=== PATIENT | female | born 1950 | race Caucasian/White ===

== ENCOUNTER → 2017-06-19 | Outpatient (CLI) | payer MEDICARE, OTHER ==
--- NOTE | ~2017-06-19 | MR113 ---
[facility] A Service of [facility] RADIOLOGY TEXT RESULTS PATIENT: ANNETTE LUBIN LOCATION: [facility] : 48 UNIT #: [id number] AGE: [address]: Lyle Pena MD SEX: F ORDER DR: [id number] [address] [address] [id number] O MR#: [id number] Acc #: [id number] NAME: ANNETTE LUBIN. : 1950 SEX: F STUDY DATE/TIME: 06/19/2017 15:12 UNIT: [facility] ROOM: STUDY DESCRIPTION: MR Lumbar Wo Contrast Attending Physician: Lyle Pena M.D. Referring Physician: Lyle Pena M.D. Ordering Physician: Lyle Pena M.D. Primary Care Physician: Lyle Pena M.D. MRI CENTER REPORT This report is preliminary unless electronic signature is present. EXAM MRI of the lumbar spine without contrast, dated 06/19/2017. COMPARISON Plain films lumbar spine dated 02/11/2016. HISTORY Chronic low back pain for many years which radiates down into the left leg and left buttock region. FINDINGS Multisequence, multiplanar imaging of the lumbar spine was obtained without contrast. Vertebral body heights and alignment are preserved. Degenerative disc signal loss is at multiple levels. Conus terminates at L1-2. Signal of conus and cauda equina are within normal limits. Increased T2-signal lesions are noted in bilateral kidneys, incompletely characterized. L1-2: Unremarkable. L2-3: Mild disc bulge with superimposed left foraminal to extraforaminal small broad-based protrusion with mild inferior left neural foraminal encroachment. No canal stenosis. L3-4: Concentric disc bulge which is asymmetrically prominent in bilateral foraminal to extraforaminal regions particularly in the left suspicious for superimposed broad-based protrusion. Mild inferior bilateral neural foraminal narrowing is seen particularly in the left. Borderline size to mild canal stenosis. Less than 5 mm tiny increased T2-signal lesions is noted within the right ligamentum flavum causing mild mass effect on the adjacent thecal sac. There is mild canal stenosis. L4-5: Concentric disc bulge with tiny central protrusion with annular STS. [facility] A Service of [facility] RADIOLOGY TEXT RESULTS PATIENT: ANNETTE LUBIN LOCATION: [facility] : 48 UNIT #: [id number] AGE: [address]: Lyle Pena MD SEX: F ORDER DR: bryanna. Mild inferior bilateral neural foraminal narrowing is seen. Mild right facet hypertrophic change. L5-S1: Disc osteophyte complex with mild left facet hypertrophic change. No canal stenosis or neural foraminal narrowing. Increased T2-signal lesions are noted in the canal associated with the sacral nerves, two in the right, and one in the left, and also in the left T12-L1 neural foramen. These are incompletely characterized on the current study. 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 Nerve sheath tumors cannot be excluded without contrast enhancement. IMPRESSION 1. Degenerative changes are noted at multiple levels as described above, relatively worse at L4-5 followed by L3-4. 2. Increased T2 signal bilateral renal lesions are noted, incompletely characterized. Correlate with prior abdominal imaging or consider renal ultrasound. There are no priors available in the current facility. 3. Increased T2-signal lesions are noted in the canal associated with the sacral nerves, two in the right, and one in the left, and also in the left T12-L1 neural foramen. These are incompletely characterized on the current study. 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 Nerve sheath tumors cannot be excluded without contrast enhancement. Dictated by... Alfredo Larson M.D. THIS IS AN ELECTRONICALLY VERIFIED REPORT Alfredo Larson M.D. at 06/21/2017 6:37 PM CPR/lesley TD: 06/20/2017 22:40 JOB #: [id number] MRI CENTER REPORT Page 1 of 1
== END | disposition home or self-care (01) ==
LOC: SMRI 14:37
DX: M54.9 Dorsalgia, unspecified (principal); M47.896 Other spondylosis, lumbar region; N28.89 Other specified disorders of kidney and ureter; R93.8 Abnormal findings on diagnostic imaging of other specified body structures; G62.9 Polyneuropathy, unspecified
CPT/HCPCS: 72148

== ENCOUNTER → 2017-06-28 | Outpatient (CLI) | payer MEDICARE, OTHER ==
--- NOTE | ~2017-06-28 | US77 ---
[facility] A Service of [facility] RADIOLOGY TEXT RESULTS PATIENT: ANNETTE LUBIN LOCATION: [facility] : 48 UNIT #: [id number] AGE: [address]: Lyle Pena MD SEX: F ORDER DR: [id number] [place] [address] [id number] O MR#: [id number] Acc #: [id number] NAME: ANNETTE LUBIN : 1950 SEX: F STUDY DATE/TIME: 06/28/2017 13:50 UNIT: [facility] ROOM: STUDY DESCRIPTION: US Kidney Bilateral Complete Attending Physician: Lyle Pena M.D. Referring Physician: Lyle Pena M.D. Ordering Physician: Lyle Pena M.D. Primary Care Physician: Lyle Pena M.D. MEDICAL IMAGING REPORT This report is preliminary unless electronic signature is present. EXAM Renal ultrasound INDICATIONS T2 hyperintense lesions in both kidneys on recent lumbar spine MRI. Further characterization. PROCEDURE Graves-scale and Doppler imaging of the kidneys and bladder. COMPARISON Lumbar spine MRI 06/19/2017 FINDINGS Technically difficult study. Kidneys were difficult to see. The right kidney measures 10.8 cm. Left kidney measures 10.5 cm. No hydronephrosis. No focal right renal lesion is seen on this study. Unremarkable bladder. IMPRESSION Technically difficult study. No discrete renal mass is seen on this study. The abnormalities seen in the kidneys on recent lumbar spine MRI are not seen on this study. These could be further characterized with renal protocol MRI or CT. Otherwise normal renal ultrasound Dictated by... Vern Mello M.D. [facility] A Service of [facility] RADIOLOGY TEXT RESULTS PATIENT: ANNETTE LUBIN LOCATION: [facility] : 48 UNIT #: [id number] AGE: [address]: Lyle Pena MD SEX: F ORDER DR: THIS IS AN ELECTRONICALLY VERIFIED REPORT Vern Mello M.D. at 06/29/2017 12:11 PM Jessie TD: 06/29/2017 03:21 JOB #: [id number] MEDICAL IMAGING REPORT Page 1 of 1
== END | disposition home or self-care (01) ==
LOC: SGUS 13:38
DX: R93.8 Abnormal findings on diagnostic imaging of other specified body structures (principal)
CPT/HCPCS: 76775